=== PATIENT | male | born 1965 | race Caucasian/White ===

== ENCOUNTER 2017-06-09 05:31 | Emergency (ER) | payer BC ==
[~2017-06-09] VITALS: Ht 182.9 cm; Wt 100.0 kg
[~2017-06-09 05:31] MED LIST: FLO0.4C PO
[2017-06-09 05:33] VITALS: BP 148/80
== END 2017-06-09 07:26 | disposition home or self-care (01) ==
LOC: ER 05:32
DX: T83.098A Other mechanical complication of other urinary catheter, initial encounter (principal); Z90.49 Acquired absence of other specified parts of digestive tract; Z98.890 Other specified postprocedural states; Z88.8 Allergy status to other drugs, medicaments and biological substances
CPT/HCPCS: 99284